=== PATIENT | male | born 1995 | race African-American/Black ===

== ENCOUNTER 2019-12-04 13:01 | Outpatient (CLI) | payer OTHER, SELFPAY ==
--- NOTE | ~2019-12-04 | US_ITS ---
EXAMINATION: US scrotum doppler DATE: 12/04/2019 13:55 INDICATION: Varicocele. Testicular atrophy. TECHNIQUE: Testicular sonogram utilizing grayscale and Doppler COMPARISON: None. FINDINGS: The right testis measures 4.9 x 2.4 x 2.8 cm. The left testis is mildly atrophic relative to the righ t testis measuring 3.1 x 1.6 x 2.4 cm. Symmetric normal grayscale appearance to both testes. 2 mm ane choic cyst at the periphery of the right testis. There is normal vascular flow to both testes. The ri ght epididymis is normal with normal vascular flow. The left epididymis not visualized tension also a trophic. There is no varicocele or hydrocele. IMPRESSION: 1. Asymmetric mild relative atrophy of the otherwise normal-appearing left testis which is of indete rminate etiology with symmetric grayscale appearance and vascular flow on color Doppler. 2. Nonvisualized left epididymis potentially also atrophic. Reviewed, dictated and finalized at location A. IMPRESSION: 1. Asymmetric mild relative atrophy of the otherwise normal-appearing left jason tis which is of indeterminate etiology with symmetric grayscale appearance and vascular flow on color Doppler. 2. Nonvisualized left epididymis potentially also atrophic.
== END 2019-12-04 13:02 | disposition home or self-care (01) ==
LOC: ANHIMG 13:14
DX: I86.1 Scrotal varices (principal); N50.0 Atrophy of testis
CPT/HCPCS: 76870; 93976